=== PATIENT | male | born 1945 | race Caucasian/White ===

== ENCOUNTER 2017-07-27 09:53 | Emergency (ER) | payer OTHER, MEDICAID ==
[~2017-07-27] VITALS: Ht 167.6 cm; Wt 86.2 kg
[2017-07-27 10:03] VITALS: BP 138/75
--- NOTE | 2017-07-27 10:05 | NUR ---
PATIENT TO OF 4
--- NOTE | 2017-07-27 10:05 | NUR ---
PT WHEEL CHAIR ASSISTED BY MELVIN NUNN TO OF4
--- NOTE | 2017-07-27 10:07 | NUR ---
PATIENT PRESENTS TO ED WITH C/O OF SOB X 2 DAYS.PT FALL TODAY AND HURT HIS NOSE;NO ACTIVE BLEEDING NOTED;DENIES N/V/D; SKIN IS PINK/WARM/DRY; AAOX4;PT DENIES ANY FEVER, CP AT THIS TIME; PATIENT STATES PAIN OF 6/10 AT THIS TIME;PALCED O2 VIA NC AT 2 LPM;PATIENT POSITIONED FOR COMFORT; ER MD MADE AWARE OF PT STATUS.
[2017-07-27] MEDS: ALBUTEROL 0.083% 2.5 MG/3 ML NEBU INH ONE (10:23)
[2017-07-27] MEDS: ALBUTEROL SULFATE/IPRATROPIU 3 ML SOL IH ONE (10:23)
--- NOTE | 2017-07-27 10:28 | NUR ---
Respiratory therapist at bedside for respiratory intervention. Patient tolerated well.
[2017-07-27] MEDS: predniSONE 20 MG TAB PO ONE (10:39)
--- NOTE | 2017-07-27 11:01 | NUR ---
PT STATES "HE FEELS MUCH BETTER NOW"NO ACUTE DISTRESS NOTED;WILL CONTINUE TO MONITOR PT.
--- NOTE | 2017-07-27 12:01 | NUR ---
Patient discharged with v/s stable. Written and verbal after care instructions given and explained. Patient alert, oriented and verbalized understanding of instructions. Ambulatory with steady gait. All questions addressed prior to discharge. ID band removed. Patient advised to follow up with PMD. Rx of DOXYCYCLINE,MOTRIN,PREDNISONE AND ALBUTEROL given. Patient educated on indication of medication including possible reaction and side effects. Opportunity to ask questions provided and answered.
[2017-07-27 12:02] VITALS: BP 129/82
== END 2017-07-27 12:01 | disposition home or self-care (01) ==
LOC: MED 09:53
DX: S01.21XA Laceration without foreign body of nose, initial encounter (principal); J44.9 Chronic obstructive pulmonary disease, unspecified; I10 Essential (primary) hypertension; W22.8XXA Striking against or struck by other objects, initial encounter; Y93.89 Activity, other specified; Y92.89 Other specified places as the place of occurrence of the external cause; Y99.8 Other external cause status
CPT/HCPCS: 94640; 99283; J7512; J7613; J7620

== ENCOUNTER 2017-09-18 15:40 | Emergency (ER) | payer OTHER, MEDICAID ==
[~2017-09-18] VITALS: Ht 167.6 cm; Wt 83.0 kg
[2017-09-18 15:47] VITALS: BP 141/68
--- NOTE | 2017-09-18 16:49 | NUR ---
PT AMBULATED TO BED 12
--- NOTE | 2017-09-18 17:30 | NUR ---
patient is a 72 year-old male with c/o dysuria x two days. patient is alert and oriented x 4. respirations are even and unlabored. patient denies any cough, dyspnea, n,v,d, fever or chills. patient states he has been having dysuria for past two days, however, no bleeding, dribbling or odor present. patient reports no changes with appetite of fluid intake. awaiting md evaluation.
[2017-09-18] MEDS ORDERED: cefTRIAXone 1,000 MG in LIDOCAINE 1% ***ER ONLY *** 2.1 ML IM ONE (18:00)
[2017-09-18] MEDS ORDERED: KETOROLAC 60 MG/2 ML VIAL IM ONE (18:00)
[2017-09-18] MEDS ORDERED: LEVOFLOXACIN 500 MG TAB PO ONE (18:00)
[2017-09-18] MEDS ORDERED: methylPREDNISolone SS 125 MG in WATER STERILE 2 ML IM ONE (18:00)
[2017-09-18] MEDS ORDERED: ALBUTEROL SULFATE/IPRATROPIU 3 ML SOL IH ONE (18:00)
--- NOTE | 2017-09-18 18:16 | NUR ---
RT at bedside.
--- NOTE | 2017-09-18 18:17 | NUR ---
patient taken to xray
--- NOTE | 2017-09-18 18:26 | NUR ---
patient returned from xray.
--- NOTE | 2017-09-18 18:27 | NUR ---
RT returned for patient's treatment.
[2017-09-18] MEDS ORDERED: cefTRIAXone 1,000 MG VIAL ONE (18:37)
[2017-09-18] MEDS ORDERED: methylPREDNISolone SS 125 MG/2 ML VIAL ONE (18:45)
--- NOTE | 2017-09-18 19:26 | NUR ---
Patient discharged with v/s stable. Written and verbal after care instructions given and explained. Patient alert, oriented and verbalized understanding of instructions. Ambulatory with steady gait. All questions addressed prior to discharge. ID band removed. Patient advised to follow up with PMD. Rx of Levaquin given. Patient educated on indication of medication including possible reaction and side effects. Opportunity to ask questions provided and answered.
== END 2017-09-18 19:26 | disposition home or self-care (01) ==
LOC: MED 15:40
DX: N40.1 Benign prostatic hyperplasia with lower urinary tract symptoms (principal); N39.0 Urinary tract infection, site not specified; J44.1 Chronic obstructive pulmonary disease with (acute) exacerbation; I10 Essential (primary) hypertension
CPT/HCPCS: 71046; 81002; 94640; 96372; 99284; J0696; J1885; J2001; J2930; J7620

== ENCOUNTER 2018-01-12 11:03 | Emergency (ER) | payer OTHER, MEDICAID ==
[~2018-01-12] VITALS: Ht 170.2 cm; Wt 85.7 kg
[2018-01-12 11:13] VITALS: BP 160/77
--- NOTE | 2018-01-12 11:18 | NUR ---
PT AMBULATED TO ER BED 01
--- NOTE | 2018-01-12 11:20 | NUR ---
72 YO M BIB W/ C/O LEFT SHOULDER PAIN 10/10 THAT IS SHARP AND ACHING R/T FALLING OUT OF BED YESTERDAY MORNING. REPORTS DIFFICULTY CATCHING HIS BREATHE/SOB WITH A COUGH THAT HAS BEEN ONGOING X 2 DAYS. PT AAOX4. [facility]CS 15. CMS INTACT. RR EVEN AND UNLABORED. ER SECHRIST NOTIFIED. PT NEEDS MET. SAFETY PRECAUTIONS IN PLACE. WILL CONTINUE TO MONITOR. AT BEDSIDE AT THIS TIME.
[2018-01-12] MEDS ORDERED: IPRATROPIUM 0.02% 0.5 MG/2.5 ML NEBU INH ONE (11:35)
[2018-01-12] MEDS ORDERED: methylPREDNISolone SS 125 MG/2 ML VIAL IVP ONE (11:35)
[2018-01-12] MEDS ORDERED: ALBUTEROL 0.083% 2.5 MG/3 ML NEBU INH ONE (11:35)
[2018-01-12 11:49] LABS: BASOPHILS # (AUTO) 0.1 K/uL (0.00-0.22); BASOPHILS % (AUTO) 1.4 % (0.0-2.0); EOSINOPHILS # (AUTO) 0.4 K/uL (0-0.4); EOSINOPHILS % (AUTO) 5.6 % (0.0-4.0); HEMATOCRIT 42.8 % (36-52); HEMOGLOBIN 14.8 g/dL (12.0-18.0); LYMPHOCYTES # (AUTO) 1.9 K/uL (2.0-11.5); LYMPHOCYTES % (AUTO) 24.3 % (20.5-51.1); MEAN CORPUSCULAR HEMOGLOBIN 30 pg (27-31); MEAN CORPUSCULAR HGB CONC 35 g/dL (33-37); MEAN CORPUSCULAR VOLUME 86.4 fL (80-94); MONOCYTES # (AUTO) 0.7 K/uL (0.8-1.0); MONOCYTES % (AUTO) 8.8 % (1.7-9.3); NEUTROPHILS # (AUTO) 4.7 K/uL (1.8-7.7); NEUTROPHILS % (AUTO) 59.9 % (42.2-75.2); PLATELET COUNT (AUTO) 251 K/uL (140-450); RED BLOOD CELL COUNT(AUTO) 4.95 MIL/uL (4.20-6.10); RED CELL DISTRIBUTION WIDTH 13.9 % (11.6-13.7); WHITE BLOOD COUNT (AUTO) 7.9 K/uL (4.8-10.8)
[2018-01-12 12:06] LABS: ALBUMIN 3.4 g/dL (3.4-5.0); ANION GAP 17.3 (8-16); ASPARTATE AMINOTRANSFERASE 20 U/L (15-37); CARBON DIOXIDE 26.5 mmol/L (21-32); CHLORIDE 104 mmol/L (98-107); CREATININE 1.6 mg/dL (0.7-1.3); GLUCOSE 148 mg/dL (74-106); POTASSIUM 3.8 mmol/L (3.5-5.1); SODIUM SERUM 144 mmol/L (136-145); TOTAL BILIRUBIN 0.4 mg/dL (0.0-1.0); UREA NITROGEN, BLOOD 20 mg/dL (7-18)
--- NOTE | 2018-01-12 12:43 | NUR ---
PT RESTING [facility]ORT[facility] AT THIS TIME. VSS. WILL CONTINUE TO MONITOR.
[2018-01-12 13:19] VITALS: BP 137/75
== END 2018-01-12 13:20 | disposition home or self-care (01) ==
LOC: MED 11:03
DX: S40.012A Contusion of left shoulder, initial encounter (principal); J44.9 Chronic obstructive pulmonary disease, unspecified; I10 Essential (primary) hypertension; W06.XXXA Fall from bed, initial encounter; Y93.89 Activity, other specified; Y92.89 Other specified places as the place of occurrence of the external cause; Y99.8 Other external cause status
CPT/HCPCS: 36415; 71045; 73030; 80053; 84484; 85025; 93005; 94640; 96374; 99285; J2930; J7613; J7644; Q0092